=== PATIENT | female | born 2000 | race Caucasian/White ===

== ENCOUNTER 2022-10-03 14:17 | Emergency (ER) | payer OTHER ==
[2022-10-03 14:53] VITALS: BP 132/69
--- NOTE | 2022-10-03 17:21 | ED Physician Documentation ---
History of Present Illness - Stated complaint Stated Complaint: FEVER,BODY ACHES - Chief complaint Chief Complaint: Resp - Additonal information Additional information: 22-year-old female presents to the emergency department for 24 hours of h eadache, myalgias, fevers and fatigue. She has had no abdominal pain nausea or vomiting. No dysuria. She has not yet received the flu vaccine. She appears well though is mildly tachycardic. Normal room air saturations Review of Systems Constitutional: reports: Fever, Chills, Myalgias, Fatigue. denies: Reviewed and negative Eyes: reports: Reviewed and negative Ears: reports: Reviewed and negative Nose: reports: Rhinorrhea / runny nose, Congestion Throat: reports: Reviewed and negative Cardiac: denies: Chest pain / pressure, Palpitations Respiratory: reports: Cough. denies: Dyspnea, Hemoptysis, Wheezing GI: reports: Reviewed and negative : reports: Reviewed and negative Skin: reports: Reviewed and negative PD PAST MEDICAL HISTORY - Allergies Allergies/Adverse Reactions: Allergies Allergy/AdvReac Type Severity Reaction Status Date / Time azithromycin Allergy Respiratory Verified 10/03/22 14:53 PD ED PE NORMAL - General General: Alert and oriented X 3, No acute distress, Well developed/nourished - HEENT HEENT: Atraumatic, Ears normal, Moist mucous membranes. 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 The symptoms are most consistent with a flulike illness. I did offer the patient Tamiflu for treatment of what I believed to be influenza however she declined that at this time. She did have some mild tachycardia here in the emergency department which I would expect to timothy with fever reduction. Her cardiopulmonary and clinical exam was otherwise benign. We discussed the usual routine care management of suspected viral illness including influenza as well as the emergent return precautions. Departure - Departure Disposition: Home, Self Care Clinical Impression: Flu-like symptoms Condition: Stable Record reviewed to determine appropriate education?: Yes Instructions: ED Flu Comments: You are seen today in the emergency department because for 24 hours she had headache, fevers, body aches and chills. Your symptoms are classical for influenza the cause of the seasonal flu. We have had a high incidence of influenza A in the community and many patients have already been seen today in the ER for this. You were offered Tamiflu as treatment for the flu but you have declined that today which is reasonable because you are otherwise healthy. I recommend that you stay well-hydrated. Please take 600 mg of ibuprofen 2-3 times a day or alternate with 500 mg of ibuprofen. These 2 medications will be most effective at helping reduce fever and body aches. You can continue the Mucinex if you feel that it helped with your symptoms of cough or congestion. In general the flu will cause you to feel like you got hit by a truck for about 3 to 5 days but then it should start to slowly get better. Anybody who lives with your in your household is at high risk to have the flu as well. Reasons to return to the emergency department would be the Persistence of fevers beyond 7 days, severe shortness of breath or chest pain, uncontrolled vomiting or severe dehydration or any labored breathing
== END 2022-10-03 17:29 | disposition home or self-care (01) ==
LOC: ED 14:17
DX: R51.9 Headache, unspecified (principal); R50.9 Fever, unspecified; R53.83 Other fatigue; M79.10 Myalgia, unspecified site
CPT/HCPCS: 99281; 99282

== ENCOUNTER 2023-01-04 09:35 | Emergency (ER) | payer OTHER ==
--- NOTE | 2023-01-04 09:48 | ED Physician Documentation ---
PD HPI ABD PAIN - Stated complaint Stated Complaint: ABD PX - Chief complaint Chief Complaint: Abd Pain - History obtained from History obtained from: Patient - History of Present Illness Timing - onset: Yesterday Timing - duration: Days (1) Timing - details: Gradual onset, Still present Quality: Cramping, Aching, Pain Improved by: Laying still. No: BM Worsened by: Moving, Palpation. No: Breathing Associated symptoms: Nausea, Loss of appetite. No: Fever, Vomiting, Diarrhea, Constipation, Dysuria, Vaginal bleeding, Vaginal dc Similar symptoms before: Has not had sx before Recently seen: Clinic (went to Walk In initially today and had exam and UA/preg tests that were negative. Referred to ED.) Review of Systems Constitutional: reports: Myalgias. denies: Fever, Chills Nose: denies: Rhinorrhea / runny nose, Congestion Throat: denies: Sore throat Respiratory: denies: Cough GI: reports: Abdominal Pain, Nausea. denies: Vomiting, Constipation, Diarrhea : denies: Dysuria, Discharge PD PAST MEDICAL HISTORY - Past Medical History Cardiovascular: None Respiratory: None Endocrine/Autoimmune: None GI: None - Past Surgical History General: Other (she had appendicitis last summer and was treated nonoperatively at [facility] IV for couple days then oral outpt. felt to heal okay and without ongoing gi symptoms.) - Present Medications Home Medications: Ambulatory Orders Medication Instructions Recorded Confirmed Ciprofloxacin HCl [Cipro] 500 mg PO BID #10 tablet 01/04/23 Docusate Sodium 100Mg Capsule 100 mg PO DAILY #20 cap 01/04/23 [Colace 100Mg Capsule] HYDROcod/ACETAM 5/325 [[place] 5/325] 1 ea PO Q6H PRN #18 tablet 01/04/23 Naproxen 250 mg PO BID 7 Days #15 tablet 01/04/23 Ondansetron Odt [Zofran] 4 mg TL Q6H PRN #15 tablet 01/04/23 metroNIDAZOLE [Flagyl] 500 mg PO BID 5 Days #10 tablet 01/04/23 - Allergies Allergies/Adverse Reactions: Allergies Allergy/AdvReac Type Severity Reaction Status Date / Time azithromycin Allergy Respiratory Verified 01/04/23 09:43 - Living Situation Living Situation: reports: With spouse/s.o. Living Arrangement: reports: At home - Social History Does the pt smoke?: No Does the pt drink ETOH?: No Does the pt have substance abuse?: No PD ED PE NORMAL - General General: Alert and oriented X 3, Well developed/nourished - HEENT HEENT: Pharynx benign - Neck Neck: Supple, no meningeal sign, No adenopathy - Cardiac Cardiac: RRR, No murmur - Respiratory Respiratory: Clear bilaterally - Abdomen Abdomen: Normal bowel sounds, Soft, Non distended, No organomegaly, Other (tender RLQ abdomen with local guarding and percussion tender.) - Female Female : Deferred - Rectal Rectal: Deferred - Back Back: No CVA TTP - Derm Derm: Normal color, Warm and dry Results - Vitals Vitals: Vital Signs - 24 hr 01/04/23 01/04/23 01/04/23 09:40 09:51 11:57 Temperature 36.1 C L Heart Rate 84 80 89 Respiratory 16 18 18 Rate Blood Pressure 129/73 115/68 138/77 H O2 Saturation 100 100 100 01/04/23 01/04/23 01/04/23 13:13 15:03 15:10 Temperature Heart Rate 72 75 72 Respiratory 18 18 16 Rate Blood Pressure 119/72 114/67 114/67 O2 Saturation 100 99 99 Oxygen O2 Source Room air - Labs Labs: Laboratory Tests 01/04/23 01/04/23 01/04/23 10:19 10:19 11:11 WBC 8.9 RBC 4.50 Hgb 13.3 Hct 40.9 MCV 90.9 MCH 29.6 MCHC 32.5 RDW 12.9 Plt Count 181 MPV 10.0 Neut # (Auto) 5.8 Lymph # (Auto) 2.4 [place] # (Auto) 0.6 Eos # (Auto) 0.1 Baso # (Auto) 0.0 Absolute Nucleated RBC 0.00 Nucleated RBC % 0.0 Sodium 137 Potassium 4.0 Chloride 107 Carbon Dioxide 23 Anion Gap 7.0 BUN 14 Creatinine 0.6 Estimated GFR (MDRD) 127 Glucose 88 Calcium 9.3 Total Bilirubin 0.7 AST 13 ALT 17 Alkaline Phosphatase 76 Total Protein 7.0 Albumin 4.0 Globulin 3.0 Albumin/Globulin Ratio 1.3 Lipase 36 Urine Color Urine Clarity Urine pH Ur Specific [place] Urine Protein Urine Glucose (UA) Urine Ketones Urine Occult Blood Urine Nitrite Urine Bilirubin Urine Urobilinogen Ur Leukocyte Esterase Ur Microscopic Review Urine Culture Comments SARS-CoV-2 (PCR) NOT DETECTED 01/04/23 11:58 WBC RBC Hgb Hct MCV MCH MCHC RDW Plt Count MPV Neut # (Auto) Lymph # (Auto) [place] # (Auto) Eos # (Auto) Baso # (Auto) Absolute Nucleated RBC Nucleated RBC % Sodium Potassium Chloride Carbon Dioxide Anion Gap BUN Creatinine Estimated GFR (MDRD) Glucose Calcium Total Bilirubin AST ALT Alkaline Phosphatase Total Protein Albumin Globulin Albumin/Globulin Ratio Lipase Urine Color YELLOW Urine Clarity CLEAR Urine pH 6.0 Ur Specific [place] 1.015 Urine Protein NEGATIVE Urine Glucose (UA) NEGATIVE Urine Ketones NEGATIVE Urine Occult Blood NEGATIVE Urine Nitrite NEGATIVE Urine Bilirubin NEGATIVE Urine Urobilinogen 0.2 (NORMAL) Ur Leukocyte Esterase NEGATIVE Ur Microscopic Review NOT INDICATED Urine Culture Comments NOT INDICATED SARS-CoV-2 (PCR) - Rads (name of study) abd/pelvic CT Radiology: Prelim report reviewed, See rad report (appendix appears normoal. there is wall thickening and some edema in initial ascending colon (cecum). Normal WBC. Presume some developing colitis. It is near prior appendix area, so I wonder if it might be early spreading to appendix, which could have different outcome if it does.) PD Medical Decision Making - ED course Complexity details: reviewed results (WBC is in normal range. UA without infection and preg test normal at [facility]. Renal function good. CT abdomen/pelvis showing some local colonic inflammation ascending colon/cecum. Appendix itself appearas normal. ), considered differential (patient states symptoms are just like her prior appendicitis, which was treated nonoperatively with iv/PO abx. As such, will get labs/UA/CT abd to evaluate. ), d/w patient, d/w account consultant (Dr. Toledo, director of content marketing for surgery - and we discussed it personally - since the appendix itself is appearing okay, and the swelling is cecum/ascending colon locally, suggested to treat as colitis with oral abx/anti- inflammatories, and pain meds ifneeded. to return to ER if worsening/fever/vomiting.) Social Determinants of Health: she does have a partner who is present and caring. They will be able to return if symptoms worsening. Drug Therapy Requiring Monitoring for Toxicity: she is having lot of pain so gave Dilaudid IV with reasonable improvement of it. It did increase again whil getting ct and awaiting reports. She is able to swallow water without problems. She does not seem to need hsopitalization per se at this point, but will need to evaluate course of symptoms over the next couple of days. ED course: pain improved with iv med but then was increasing some after CT/labs and time in eR. given then repeat dose pain meds iV without ill effect. Pain improved enough and patient/partner felt comfortable with discharge. I conveyed my dis cussion with Dr. Toledo and they were understanding of treatment plan/algorythm Departure - Departure Disposition: Home, Self Care Clinical Impression: Colitis, acute, RLQ abdominal pain, History of appendicitis Clinical Impression: (Ruled Out): Appendicitis Condition: Stable Record reviewed to determine appropriate education?: Yes Prescriptions: Ciprofloxacin HCl [Cipro] 500 mg PO BID #10 tablet Docusate Sodium 100Mg Capsule [Colace 100Mg Capsule] 100 mg PO DAILY #20 cap metroNIDAZOLE [Flagyl] 500 mg PO BID 5 Days #10 tablet Naproxen 250 mg PO BID 7 Days #15 tablet HYDROcod/ACETAM 5/325 [[place] 5/325] 1 ea PO Q6H PRN #18 tablet PRN Reason: Pain Ondansetron Odt [Zofran] 4 mg TL Q6H PRN #15 tablet PRN Reason: Nausea / Vomiting Comments: Your CT scan was a normal-appearing appendix at this point. There is inflammation in the colon just adjacent to where the appendix is in the cecum and ascending colon. It is localized and relatively mild in appearance. I talked with her surgeon on-call who said he would not advocate any surgery given that the appendix is appearing normal. We will treat the colitis with antibiotics as well as anti-inflammatory and add in ondansetron if needed for nausea and Tylenol or hydrocodone if needed for pain. Docusate stool softener twice daily for the next week or so to help with any constipation. We would anticipate improvement in your symptoms over the next day or 2. Return to the ER if not well improved in the next couple of days or if the above medications are not helping enough with your symptoms. If this resolves within the next 2 to 3 days then no further follow-up or treatment is necessarily needed. I sent your prescriptions to the [facility] pharmacy in [place]. Frequent fluids and bland food today and progress to normal diet tomorrow if doing better. My narcotic instructions I am prescribing a short course of narcotic pain medication for you. These are potentially dangerous and addictive medications that should be used carefully. These medications may constipate you. Take an [id number] stool softener such as docusate twice daily with plenty of water while taking these medications. If you go 24 hours without a bowel movement, take [id number] MiraLAX, per package instructions. Do not drink or drive while taking these medications. If you received narcotic or sedating medications while in the emergency department do not drive for 24 hours. Store this medication in a safe, secure place and out of reach of children. It is a violation of federal law to give or sell this medication to another person or to use in a manner other than prescribed. The ED will not refill narcotic prescriptions, including prescriptions lost or stolen. You can dispose of unwanted medications at the [facility]'s office or at several pharmacies such as [facility]. Forms: Activity restrictions Discharge Date/Time: 01/04/23 15:15
[2023-01-04] MEDS ORDERED: SODIUM CHLORIDE 0.9% 1,000 ML IV STA (10:04)
[2023-01-04] MEDS ORDERED: HYDROmorphone 1 MG/ML CARPUJECT IVP STA ×2 (10:04→13:21)
[2023-01-04] MEDS ORDERED: KETOROLAC 15 MG/ML VIAL IVP STA (10:04)
[2023-01-04] MEDS ORDERED: ONDANSETRON 4 MG/2 ML VIAL IVP STA (10:04)
[2023-01-04 10:24] LABS: BASOPHILS % (AUTO) 0.3 %; EOSINOPHILS # (AUTO) 0.1 10^3/uL (0.0-0.7); EOSINOPHILS % (AUTO) 1.4 %; HCT - HEMATOCRIT 40.9 % (37.0-47.0); HGB - HEMOGLOBIN 13.3 g/dL (12.0-16.0); LYMPHOCYTES # (AUTO) 2.4 10^3/uL (1.5-3.5); LYMPHOCYTES % (AUTO) 26.5 %; MEAN CORPUSCULAR HEMOGLOBIN 29.6 pg (27.0-31.0); MEAN CORPUSCULAR HGB CONC 32.5 g/dL (32.0-36.0); MEAN CORPUSCULAR VOLUME 90.9 fL (81.0-99.0); MONOCYTES # (AUTO) 0.6 10^3/uL (0.0-1.0); MONOCYTES % (AUTO) 6.3 %; NEUTROPHILS # (AUTO) 5.8 10^3/uL (1.5-6.6); NEUTROPHILS % (AUTO) 65.2 %; PLT - PLATELET COUNT 181 10^3/uL (130-450); RED CELL DISTRIBUTION WIDTH 12.9 % (12.0-15.0); WHITE BLOOD COUNT 8.9 x10^3/uL (4.8-10.8)
[2023-01-04] MEDS ORDERED: iohexoL-300 100 ML VIAL ONE (10:33)
[2023-01-04 10:36] LABS: ALBUMIN/GLOBULIN RATIO 1.3 (1.0-2.2); BILIRUBIN,TOTAL 0.7 mg/dL (0.2-1.0); CALCIUM 9.3 mg/dL (8.5-10.3); CREATININE 0.6 mg/dL (0.4-1.0)
[2023-01-04] MEDS ORDERED: iohexoL-300 100 ML VIAL IVP ONE (11:51)
[2023-01-04 12:01] LABS: BILIRUBIN,URINE NEGATIVE (NEGATIVE); GLUCOSE, URINE (UA) NEGATIVE (NEGATIVE); KETONES,URINE (UA) NEGATIVE (NEGATIVE); LEUKOCYTE ESTERASE, URINE NEGATIVE (NEGATIVE); NITRITE,URINE NEGATIVE (NEGATIVE); OCCULT BLOOD,URINE NEGATIVE (NEGATIVE); PROTEIN,URINE NEGATIVE (NEGATIVE); UROBILINOGEN,URINE 0.2 (NORMAL) E.U./dL (NORMAL)
[2023-01-04 12:03] LABS: CLARITY,URINE CLEAR (CLEAR)
--- NOTE | 2023-01-04 12:39 | CT Report ---
PROCEDURE: ABDOMEN/PELVIS W INDICATIONS: RLQ Abdominal pain, appendicitis suspected CONTRAST: 100ml Omnipaque 300 TECHNIQUE: After the administration of intravenous contrast, 5 mm thick sections acquired from the diaphragms to the symphysis. 5 mm thick coronal and sagittal reformats were acquired. For radiation dose reducti on, the following was used: automated exposure control, adjustment of mA and/or kV according to becky ent size. COMPARISON: None. FINDINGS: Visualized lung bases: No pleural effusion. Liver and biliary tree: No suspect focal hepatic lesion. No biliary ductal dilation. Gallbladder: No radiopaque cholelithiasis. Spleen: Unremarkable. Pancreas: Unremarkable. Adrenal glands: Unremarkable. Kidneys and ureters: No hydronephrosis. Gastrointestinal tract: No bowel obstruction. The appendix is visualized without evidence of acute ap pendicitis. Possible/equivocal pericolonic fat stranding adjacent to the ascending colon (for example series 3 image 52, series 6 image 26, series 7 image 54). No definite or substantial associated colo keyon wall thickening. Peritoneal cavity: No free air or substantial free fluid. Bladder: Unremarkable. Pelvic organs: Unremarkable CT appearance. Vasculature: No abdominal aortic aneurysm. Musculoskeletal: No acute osseous abnormality identified. IMPRESSION: 1. No evidence of acute appendicitis. 2. Possible/equivocal pericolonic fat stranding adjacent to the ascending colon, a finding that raise s the possibility of a nonspecific colitis which could be infectious or inflammatory. Reviewed by: Jeffy Shields MD on 01/04/2023 12:37 PM [facility] Approved by: Jeffy Shields MD on 01/04/2023 12:37 PM PST Station ID: [id number]
[2023-01-04] MEDS ORDERED: CIPROFLOXACIN 250 MG TABLET PO STA (13:38)
[2023-01-04] MEDS ORDERED: metroNIDAZOLE 250 MG TABLET PO STA (13:38)
[2023-01-04 15:10] VITALS: BP 114/67
== END 2023-01-04 15:15 | disposition home or self-care (01) ==
LOC: ED 09:35
DX: N30.91 Cystitis, unspecified with hematuria (principal); Z86.2 Personal history of diseases of the blood and blood-forming organs and certain disorders involving the immune mechanism
CPT/HCPCS: 36415; 74177; 80053; 81003; 83690; 85025; 87635; 96374; 96376; 99284; A9270; J1170; Q9967; 81001; 87086

== ENCOUNTER 2023-01-05 15:13 | Emergency (ER) | payer OTHER ==
[2023-01-05 16:07] VITALS: BP 133/75
--- NOTE | 2023-01-05 16:08 | ED Physician Documentation ---
History of Present Illness - Stated complaint Stated Complaint: ABD PX - Chief complaint Chief Complaint: Abd Pain - History obtained from History obtained from: Patient - Additonal information Additional information: The patient comes to the emergency department chief complaint of right lower quadrant abdominal pain. She was just seen yesterday and worked up extensively and diagnosed with colitis without appendicitis. She states that it is still hurting and her significant other states that they were told that they should return in 24 to 48 hours if the pain continues and so he states that they are here now. The patient denies any new or increased nausea, headache, fever, or change in bowel habits. She states that her pain medicine is not helping. No other complaints at this time. 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 : None HEENT: None Psych: None Musculoskeletal: None Derm: None - Past Surgical History Past Surgical History: No General: Other - Present Medications Home Medications: Ambulatory Orders Medication Instructions Recorded Confirmed Ciprofloxacin HCl [Cipro] 500 mg PO BID #10 tablet 01/04/23 01/05/23 Docusate Sodium 100Mg Capsule 100 mg PO DAILY #20 cap 01/04/23 01/05/23 [Colace 100Mg Capsule] HYDROcod/ACETAM 5/325 [[place] 5/325] 1 ea PO Q6H PRN #18 tablet 01/04/23 01/05/23 Naproxen 250 mg PO BID 7 Days #15 tablet 01/04/23 01/05/23 Ondansetron Odt [Zofran] 4 mg TL Q6H PRN #15 tablet 01/04/23 01/05/23 metroNIDAZOLE [Flagyl] 500 mg PO BID 5 Days #10 tablet 01/04/23 01/05/23 Atomoxetine HCl [Strattera] 40 mg PO DAILY 01/05/23 01/05/23 Fluoxetine HCl [Prozac] 40 mg PO DAILY 01/05/23 01/05/23 - Allergies Allergies/Adverse Reactions: Allergies Allergy/AdvReac Type Severity Reaction Status Date / Time azithromycin Allergy Respiratory Verified 01/05/23 15:22 - Social History Does the pt smoke?: No Smoking Status: Never smoker Does the pt drink ETOH?: No Does the pt have substance abuse?: No - Immunizations Immunizations are current?: Yes PD ED PE NORMAL - Vitals Vital signs reviewed: Yes - General General: Alert and oriented X 3, No acute distress, Well developed/nourished - HEENT HEENT: Atraumatic, PERRL, EOMI, Moist mucous membranes - Neck Neck: Supple, no meningeal sign - Cardiac Cardiac: RRR, No murmur, Strong equal pulses - Respiratory Respiratory: No respiratory distress, Clear bilaterally - Abdomen Abdomen: Soft, Non distended, Other (Mild to moderate tenderness palpation right abdomen, no rebound or guarding.) - Derm Derm: Warm and dry - Extremities Extremities: No deformity - Neuro Neuro: Alert and oriented X 3 - Psych Psych: Normal mood, Normal affect Results - Vitals Vitals: Oxygen O2 Source Room air PD Medical Decision Making - ED course Complexity details: reviewed old records, reviewed results, re-evaluated patient, considered differential, d/w patient, d/w family ED course: I reviewed the patient's records from yesterday and found that she had been worked up extensively and it had been less than 24 hours that she had been out of the ED before returning. The patient's CT scan had showed a colitis in the proximal COVID: But appendix was clear. CBC had been unremarkable. I discussed with the patient that at this point in time, she needs to keep taking her antibiotics. Week have discussed the intervals at which she may take pain medication, and how much may take at that time. Advised her that at this point, there is no indication to repeat work-up and the patient will need to be patient and to certain extent work through the symptoms as her body begins to get better. Patient is agreeable to this plan. We have discussed the usual indications for return. Departure - Departure Disposition: 01 Home, Self Care Clinical Impression: Colitis, acute Abdominal pain Qualifiers: Abdominal location: right lower quadrant Qualified Code(s): R10.31 - Right lower quadrant pain Condition: Stable Instructions: ED Gastroenteritis Bacterial Comments: Extensive work-up was done yesterday and did not show any emergent condition. You did have some focal inflammation of your colon, or large intestine, involving a small area in the early part of it. This was adjacent to the appendix but did not involve the appendix, which look normal. Given that you just started antibiotics yesterday afternoon, there has not been enough time to expect the symptoms to begin to turn around. The most important aspect of treatment is taking the antibiotics, but for your comfort, you may increase the frequency or the amount of the hydrocodone that you are taking, if you wish. The maximum dosing is 2 tablets every 4 hours, as needed for pain. You may try taking 2 tablets every 6 hours or 1 tablet every 4 hours if you would like to try to have more effective pain relief but not take the absolute maximum. If you develop a fever, or if you develop an acute escalation in your pain, then please return to the emergency department. Otherwise, if your pain has not significantly improved in the next 2 days, you may come in for reevaluation. Discharge Date/Time: 01/05/23 16:18
== END 2023-01-05 16:18 | disposition home or self-care (01) ==
LOC: ED 15:13
DX: K52.9 Noninfective gastroenteritis and colitis, unspecified (principal)
CPT/HCPCS: 99281; 99284

== ENCOUNTER 2023-01-21 07:47 | Emergency (ER) | payer OTHER ==
[2023-01-21 08:40] LABS: BASOPHILS % (AUTO) 0.3 %; EOSINOPHILS # (AUTO) 0.1 10^3/uL (0.0-0.7); EOSINOPHILS % (AUTO) 1.2 %; HCT - HEMATOCRIT 42.2 % (37.0-47.0); HGB - HEMOGLOBIN 13.5 g/dL (12.0-16.0); LYMPHOCYTES # (AUTO) 1.8 10^3/uL (1.5-3.5); LYMPHOCYTES % (AUTO) 26.7 %; MEAN CORPUSCULAR HEMOGLOBIN 28.5 pg (27.0-31.0); MEAN CORPUSCULAR VOLUME 89.2 fL (81.0-99.0); MONOCYTES # (AUTO) 0.5 10^3/uL (0.0-1.0); NEUTROPHILS # (AUTO) 4.2 10^3/uL (1.5-6.6); NEUTROPHILS % (AUTO) 64.5 %; PLT - PLATELET COUNT 201 10^3/uL (130-450); RED BLOOD COUNT 4.73 10^6/uL (4.20-5.40); RED CELL DISTRIBUTION WIDTH 12.7 % (12.0-15.0); WHITE BLOOD COUNT 6.6 x10^3/uL (4.8-10.8)
[2023-01-21 08:49] LABS: ALBUMIN 4.3 g/dL (3.2-5.5); ALBUMIN/GLOBULIN RATIO 1.3 (1.0-2.2); CREATININE 0.5 mg/dL (0.4-1.0); POTASSIUM 3.8 mmol/L (3.5-5.0); TOTAL PROTEIN 7.6 g/dL (6.7-8.2)
[2023-01-21 10:53] LABS: BILIRUBIN,URINE NEGATIVE (NEGATIVE); GLUCOSE, URINE (UA) NEGATIVE (NEGATIVE); KETONES,URINE (UA) NEGATIVE (NEGATIVE); LEUKOCYTE ESTERASE, URINE NEGATIVE (NEGATIVE); NITRITE,URINE NEGATIVE (NEGATIVE); OCCULT BLOOD,URINE NEGATIVE (NEGATIVE); PH,URINE 6.5 PH (5.0-7.5); PROTEIN,URINE NEGATIVE (NEGATIVE); UROBILINOGEN,URINE 0.2 (NORMAL) E.U./dL (NORMAL)
[2023-01-21 10:56] LABS: CLARITY,URINE CLEAR (CLEAR); HCG UR QUAL NEGATIVE
[2023-01-21 12:02] VITALS: BP 122/76
--- NOTE | 2023-01-21 12:03 | Ultrasound Report ---
PROCEDURE: Pelvic w/Transvag+Doppler Comp INDICATIONS: pelvic pain center TECHNIQUE: Real-time scanning was performed of the pelvic organs, with image documentation. Additional endovagi nal scanning was necessary due to incomplete visualization of the adnexal and endometrial structures by transabdominal scanning. Doppler interrogation was performed of the ovaries bilaterally. COMPARISON: None. FINDINGS: No pathologic free abdominal or pelvic fluid. Uterus: Uterus is normal in size at 5.9 x 4.1 x 2.6 cm. It is anteverted The endometrium measures 5. 1 mm in combined thickness. Ovaries: Right ovary measures 2.1 x 1.5 x 0.8 cm with a volume of 1.3 mL. Left ovary measures 2.7 x 1.7 x 0.8 cm, with a volume of 2.0 mL. Normal intraovarian flow bilaterally. Minimal physiologic flui d. Other: No free pelvic fluid. IMPRESSION: Unremarkable pelvic ultrasound. Reviewed by: Romero Tian MD on 01/21/2023 12:02 PM PST Approved by: Romero Tian MD on 01/21/2023 12:02 PM PST Station ID: [id number]
--- NOTE | 2023-01-21 12:14 | ED Physician Documentation ---
PD HPI ABD PAIN - Stated complaint Stated Complaint: ABD PX, FEMALE - Chief complaint Chief Complaint: Abd Pain - History obtained from History obtained from: Patient - History of Present Illness Timing - onset: How many days ago (3) Timing - duration: Days (3) Timing - details: Gradual onset, Still present Quality: Sharp, Pain Location: Suprapubic Radiation: Lower back Improved by: Laying still Worsened by: Moving Associated symptoms: Nausea, Diarrhea (improved). No: Fever, Vomiting, Constipation Similar symptoms before: Diagnosis (colitis) Recently seen: Emergency Dept - Additional information Additional information: 22-year-old female with a 3-day history of suprapubic abdominal pain that radiates to her back. She has sharp pains, not present all the time. She has been treated for colitis last month seen on CT scan. Review of Systems Constitutional: reports: Chills. denies: Fever Ears: denies: Ear pain Nose: denies: Congestion Throat: denies: Sore throat Cardiac: denies: Chest pain / pressure Respiratory: denies: Cough GI: reports: Abdominal Pain, Nausea, Diarrhea (improved) : reports: Dysuria Skin: denies: Rash Musculoskeletal: denies: Neck pain, Back pain, Extremity pain PD PAST MEDICAL HISTORY - Past Medical History Cardiovascular: None Respiratory: None Neuro: None Endocrine/Autoimmune: None GI: Other [employer]: None : None HEENT: None Psych: None Musculoskeletal: None Derm: None Other Past Medical History: colitis - Past Surgical History Past Surgical History: No General: Other - Present Medications Home Medications: Ambulatory Orders Medication Instructions Recorded Confirmed Ciprofloxacin HCl [Cipro] 500 mg PO BID #10 tablet 01/04/23 01/05/23 Docusate Sodium 100Mg Capsule 100 mg PO DAILY #20 cap 01/04/23 01/05/23 [Colace 100Mg Capsule] HYDROcod/ACETAM 5/325 [[place] 5/325] 1 ea PO Q6H PRN #18 tablet 01/04/23 01/05/23 Naproxen 250 mg PO BID 7 Days #15 tablet 01/04/23 01/05/23 Ondansetron Odt [Zofran] 4 mg TL Q6H PRN #15 tablet 01/04/23 01/05/23 metroNIDAZOLE [Flagyl] 500 mg PO BID 5 Days #10 tablet 01/04/23 01/05/23 Atomoxetine HCl [Strattera] 40 mg PO DAILY 01/05/23 01/05/23 Fluoxetine HCl [Prozac] 40 mg PO DAILY 01/05/23 01/05/23 - Allergies Allergies/Adverse Reactions: Allergies Allergy/AdvReac Type Severity Reaction Status Date / Time azithromycin Allergy Respiratory Verified 01/21/23 08:05 - Social History Does the pt smoke?: No Smoking Status: Never smoker Does the pt drink ETOH?: No Does the pt have substance abuse?: No - Immunizations Immunizations are current?: Yes PD ED PE NORMAL - Vitals Vital signs reviewed: Yes (normal ) - General General: Alert and oriented X 3, No acute distress, Well developed/nourished - HEENT HEENT: Atraumatic, PERRL, EOMI - Neck Neck: Supple, no meningeal sign, No bony TTP - Cardiac Cardiac: RRR, No murmur - Respiratory Respiratory: No respiratory distress, Clear bilaterally - Abdomen Abdomen: Normal bowel sounds, Soft, Non distended, No organomegaly, Other (mild suprapubic pain without garding or rebound. ) - Back Back: No CVA TTP, No spinal TTP - Derm Derm: Normal color, Warm and dry, No rash - Extremities Extremities: No deformity, No edema - Neuro Neuro: Alert and oriented X 3, cell cleaner 2-12 intact, No motor deficit, No sensory deficit, Normal speech Eye Opening: Spontaneous Motor: Obeys Commands Verbal: Oriented GCS Score: 15 - Psych Psych: Normal mood, Normal affect Results - Vitals Vitals: Vital Signs - 24 hr 01/21/23 01/21/23 08:01 11:58 Temperature 36.9 C Heart Rate 98 86 Respiratory 14 16 Rate Blood Pressure 114/73 122/76 O2 Saturation 98 100 Oxygen O2 Source Room air - Labs Labs: Laboratory Tests 01/21/23 01/21/23 01/21/23 08:25 08:25 10:45 WBC 6.6 RBC 4.73 Hgb 13.5 Hct 42.2 MCV 89.2 MCH 28.5 MCHC 32.0 RDW 12.7 Plt Count 201 MPV 10.0 Neut # (Auto) 4.2 Lymph # (Auto) 1.8 [place] # (Auto) 0.5 Eos # (Auto) 0.1 Baso # (Auto) 0.0 Absolute Nucleated RBC 0.00 Nucleated RBC % 0.0 Sodium 136 Potassium 3.8 Chloride 105 Carbon Dioxide 23 Anion Gap 8.0 BUN 10 Creatinine 0.5 Estimated GFR (MDRD) 157 Glucose 91 Calcium 9.0 Total Bilirubin 1.0 AST 14 ALT 19 Alkaline Phosphatase 76 Total Protein 7.6 Albumin 4.3 Globulin 3.3 Albumin/Globulin Ratio 1.3 Lipase 36 Urine Color YELLOW Urine Clarity CLEAR Urine pH 6.5 Ur Specific [place] 1.015 Urine Protein NEGATIVE Urine Glucose (UA) NEGATIVE Urine Ketones NEGATIVE Urine Occult Blood NEGATIVE Urine Nitrite NEGATIVE Urine Bilirubin NEGATIVE Urine Urobilinogen 0.2 (NORMAL) Ur Leukocyte Esterase NEGATIVE Ur Microscopic Review NOT INDICATED Urine Culture Comments NOT INDICATED Urine HCG, Qual NEGATIVE - Rads (name of study) us pelvis Radiology: Prelim report reviewed (Impression: Unremarkable pelvic ultrasound.), EMP read indepedently, See rad report PD Medical Decision Making - ED course Complexity details: reviewed results, re-evaluated patient, considered differential, d/w patient Reviewed Lab Results: Today we reviewed a complete blood count with normal white blood cell count hemoglobin hematocrit and platelets. We reviewed chemistries with a normal electrolytes normal kidney and liver function. Urinalysis was normal as well was negative. All of the testing we did here today was unremarkable ED course: 22-year-old female presents to the emergency department with suprapubic abdominal pain but with improving diarrhea and a prior history of colitis. Her examination was not impressive and I elected to investigate the pelvis with ultrasound which is again was a negative study. All of the studies and test we performed today in the emergency department were normal. The patient requested to go home. She did not require pain management. Departure - Departure Disposition: 01 Home, Self Care Clinical Impression: Irritable bowel syndrome Qualifiers: Irritable bowel syndrome type: with diarrhea Qualified Code(s): K58.0 - Irritable bowel syndrome with diarrhea Condition: Stable Instructions: ED IBS Follow-Up: Your, doctor at [facility] [Other] Comments: Jess, today we did not find any abnormalities to the testing we did. Today we did a blood count, electrolytes, chemistries, urinalysis and a test. We did a pelvic ultrasound. All of the studies were normal. Our expectation is that your symptoms improve and you may have recurrence of these symptoms periodically. A follow-up with your primary care doctor for further treatment of irritable bowel syndrome is indicated. Discharge Date/Time: 01/21/23 12:44
== END 2023-01-21 12:44 | disposition home or self-care (01) ==
LOC: ED 07:47
DX: K58.0 Irritable bowel syndrome with diarrhea (principal)
CPT/HCPCS: 36415; 80053; 81001; 81003; 81025; 83690; 85025; 87086; 93975; 99283; 99284

== ENCOUNTER 2023-02-02 08:00 | Outpatient (CLI) | payer OTHER | END 2023-02-02 23:59 | disposition home or self-care (01) | LOC: LAB.N 08:00 | PROVIDERS: ATTEND Registered Nurse | DX: Z11.1 Encounter for screening for respiratory tuberculosis (principal) | CPT/HCPCS: 81599; 86480 ==

== ENCOUNTER 2023-04-19 08:00 | Outpatient (CLI) | payer OTHER ==
--- NOTE | 2023-04-19 14:54 | XRAY Report ---
PROCEDURE: Chest 2 View X-Ray INDICATIONS: ACUTE COUGH TECHNIQUE: 2 views of the chest were acquired. COMPARISON: None. FINDINGS: Surgical changes and devices: None. Lungs and pleura: No pleural effusions or pneumothorax. Lungs are clear. Mediastinum: Mediastinal contours appear normal. Heart size is normal. Bones and chest wall: No suspicious bony lesions. Overlying soft tissues appear unremarkable. IMPRESSION: No acute cardiopulmonary process. Reviewed by: Alessia Mercado MD on 04/19/2023 2:53 PM PDT Approved by: Alessia Mercado MD on 04/19/2023 2:53 PM PDT Station ID: [id number]
== END 2023-04-19 08:15 | disposition home or self-care (01) ==
LOC: DI.N 08:00
PROVIDERS: ATTEND Specialist
DX: R05.1 Acute cough (principal)